=== PATIENT | female | born 1970 | race Caucasian/White ===

== ENCOUNTER → 2025-07-23 13:33 | Day surgery (SDC) | payer OTHER, SELFPAY ==
[2025-07-23] VITALS (9 sets, daily range): BP systolic 92–131; BP diastolic 61–74
--- NOTE | 2025-07-23 09:06 | ED.GENMED ---
History of Present Illness
<Andry Bailey PA-C - Last Filed: 07/23/25 13:39>
General
Chief Complaint: Abdominal Pain
Source: patient
Exam Limitations: none
Time Seen by Provider: 07/23/25 09:00
History of Present Illness
History of Present Illness:
55-year-old otherwise healthy female presents complaining of lower abdominal pain for the past 2 days. She was vomiting at the onset of her symptoms that has since resolved. The pain persist. Pain does not radiate to the back. No associated
urinary symptoms. No fevers. She was traveling to [place] and thought maybe she had food poisoning symptoms are not improving. She had a normal bowel movement earlier today without any diarrhea or blood. No other complaints
Phy Exam
<Andry Bailey PA-C - Last Filed: 07/23/25 13:39>
Physical Exam
Physical Exam:
General: Well-appearing female no acute respiratory distress
HEENT: Normal cephalic atraumatic
Heart: Regular rate and rhythm
Lungs: Clear no wheeze
Abdomen is soft but tender to the lower quadrants bilaterally perhaps right greater than the left. Nondistended
Extremities: No cyanosis
Course
<Andry Bailey PA-C - Last Filed: 07/23/25 13:39>
Orders/Labs/Results
Orders:
Orders
07/23/25 09:06
CT Abd/pelvis W Iv Cont Urgent
Comment:
Reason For Exam: lower abdominal pain
0.9% Sodium Chloride 1000 ml [Nss] 1,000 ml IV BOLUS
07/23/25 09:21
Complete Blood Count/With Diff Urgent
Comprehensive Metabolic Panel Urgent
Lipase Urgent
07/23/25 Lunch
NPO
Allow oral meds: Yes
Allow clear liquids: No
07/23/25 11:56
Piperacillin/Tazo 3.375 Gram [Zosyn] 3.375 gram in 50 ml IV NOW
07/23/25 13:09
Ketorolac [Toradol] 15 mg IV NOW STA
07/23/25 13:23
Sequential Compression Device [Pneumatic Compression Sleeves] As Directed
Type: Knee high
DX Deep Vein Thrombosis Video Routine
07/23/25 13:24
Admit/Transfer Patient As Directed
Co-Sign Provider:
Level of Care: Post Proc/Surg Recovery
Assign to:: Medical/Surgical
Physician / Group: June
Diagnosis: Appendicitis
Reason for Overnight Stay: Standard of Care
Code Status As Directed
Resuscitation Status: Full Code
Abnormal Lab Results
07/23/25
09:21
WBC 13.6 H 10^3/uL
(4.8-10.8)
Abs Immat Gran (auto) 0.1 H 10^3/uL
(0-0.05)
Absolute Neuts (auto) 11.8 H 10^3/uL
(1.4-6.5)
Absolute Lymphs (auto) 1.1 L 10^3/uL
(1.2-3.4)
Neutrophils % 86.8 H %
(42.2-75.2)
Lymphocytes % 7.8 L %
(20.5-51.1)
Glucose 106 H mg/dl
(70-99)
07/23/25 09:21
07/23/25 09:21
Vital Signs
Initial and Last Documented VS:
Initial Vital Signs
Temp Pulse Resp BP Pulse Ox
99.1 F 107 18 101/71 96
07/23/25 08:09 07/23/25 08:09 07/23/25 08:09 07/23/25 08:09 07/23/25 08:09
Last Documented Vital Signs
Temp Pulse Resp BP Pulse Ox
99.1 F 97 17 101/71 96
07/23/25 08:09 07/23/25 09:00 07/23/25 09:00 07/23/25 08:09 07/23/25 09:09
<Jody Mcdonald MD - Last Filed: 07/23/25 13:32>
Orders/Labs/Results
Orders:
Orders
07/23/25 09:06
CT Abd/pelvis W Iv Cont Urgent
Comment:
Reason For Exam: lower abdominal pain
0.9% Sodium Chloride 1000 ml [Nss] 1,000 ml IV BOLUS
07/23/25 09:21
Complete Blood Count/With Diff Urgent
Comprehensive Metabolic Panel Urgent
Lipase Urgent
07/23/25 Lunch
NPO
Allow oral meds: Yes
Allow clear liquids: No
07/23/25 11:56
Piperacillin/Tazo 3.375 Gram [Zosyn] 3.375 gram in 50 ml IV NOW
07/23/25 13:09
Ketorolac [Toradol] 15 mg IV NOW STA
07/23/25 13:23
Sequential Compression Device [Pneumatic Compression Sleeves] As Directed
Type: Knee high
DX Deep Vein Thrombosis Video Routine
07/23/25 13:24
Admit/Transfer Patient As Directed
Co-Sign Provider:
Level of Care: Post Proc/Surg Recovery
Assign to:: Medical/Surgical
Physician / Group: June
Diagnosis: Appendicitis
Reason for Overnight Stay: Standard of Care
Code Status As Directed
Resuscitation Status: Full Code
Abnormal Lab Results
07/23/25
09:21
WBC 13.6 H 10^3/uL
(4.8-10.8)
Abs Immat Gran (auto) 0.1 H 10^3/uL
(0-0.05)
Absolute Neuts (auto) 11.8 H 10^3/uL
(1.4-6.5)
Absolute Lymphs (auto) 1.1 L 10^3/uL
(1.2-3.4)
Neutrophils % 86.8 H %
(42.2-75.2)
Lymphocytes % 7.8 L %
(20.5-51.1)
Glucose 106 H mg/dl
(70-99)
07/23/25 09:21
07/23/25 09:21
Vital Signs
Initial and Last Documented VS:
Initial Vital Signs
Temp Pulse Resp BP Pulse Ox
99.1 F 107 18 101/71 96
07/23/25 08:09 07/23/25 08:09 07/23/25 08:09 07/23/25 08:09 07/23/25 08:09
Last Documented Vital Signs
Temp Pulse Resp BP Pulse Ox
99.1 F 97 17 101/71 96
07/23/25 08:09 07/23/25 09:00 07/23/25 09:00 07/23/25 08:09 07/23/25 09:09
<Andry Bailey PA-C - Last Filed: 07/23/25 13:39>
MDM/Problems Addressed
Differential Diagnosis Includes:
Abdominal pain. Consider diverticulitis versus appendicitis versus colitis versus viral illness. She was vomiting and has not had anything to eat or drink since then. Consider electrolyte abnormality or dehydration. Check labs. Fluids ordered.
CT pending
<Andry Bailey PA-C - Last Filed: 07/23/25 13:39>
*Pulse Oximetry
SaO2: 96
Oxygen Mode of Delivery: Room air
Patient hypoxic: no
*Critical Care Note
Total Time (30-74mins, 75-104mins- exclusive of procedures): Not Applicable
<Andry Bailey PA-C - Last Filed: 07/23/25 13:39>
Update Note
Update Note:
White count 13.7. CT demonstrates acute appendicitis with an appendix measuring 14 mm in diameter with significant stranding surrounding this. No sign of rupture or abscess. Zosyn ordered fluids are going in. Notified surgery
ED Attending Note
<Andry Bailey PA-C - Last Filed: 07/23/25 13:39>
-
Portions of this chart may have been created with voice recognition software.� Occasional wrong word or��sound alike� substitutions may have occurred due to the inherent limitations of voice recognition software.
<Jody Mcdonald MD - Last Filed: 07/23/25 13:32>
ED Attending Note
Patient seen and examined by attending physician: Yes
I performed the substantive portion of visit, reviewed & personally made and approve the management plan that is documented in note by myself or YOSI.: Yes
ED Attending Note:
The patient appears nontoxic and rather well. Abdomen is mildly distended but soft. Right lower quadrant tenderness on exam. Heart sounds regular, lungs are clear.
Discharge Plan
Departure
Patient Disposition: Admit
Date of Disposition: 07/23/25
Time of Disposition: 11:59
Presentation/result/management discussed w/ accepting /DO: June
Discharge Problem:
Acute appendicitis
Interventions
Interventions:
*Risk Screen - Suicide Last Done: 07/23/25 09:08
*General Assessment Last Done: 07/23/25 09:08
*Neglect/Abuse Screening Last Done: 07/23/25 09:08
*ED- Fall Risk Assessment Last Done: 07/23/25 09:08
*ED COVID-19 Vaccine History Last Done: 07/23/25 09:08
ZD-Qseufe-Puxbzaqciu Assessment Last Done: 07/23/25 09:08
[2025-07-23] MEDS: NSS 1000 IV ×2 (09:21→19:45)
[2025-07-23 09:28] LABS: Hematocrit 38.5 % (37.0-47.0); Hemoglobin 12.9 g/dL (12.0-16.0); Mean Corp Hgb Conc. 33.5 g/dL (33.0-37.0); Mean Corpuscular Volume 87.3 fL (81.0-99.0); Nucleated Red Blood Cells % 0 %; Platelet Count 247 10^3/uL (130-400); Red Cell Dist. Width 12.9 % (11.5-14.5)
[2025-07-23 09:55] LABS: ALT (SGPT) 17 U/L (0-35); AST (SGOT) 19 U/L (14-36); Albumin 4.2 g/dl (3.5-5.0); Alkaline Phosphatase 75 U/L (38-126); Blood Urea Nitrogen 17 mg/dl (7-17); Calcium 9.4 mg/dl (8.4-10.2); Carbon Dioxide 27 mmol/L (22-30); Chloride 105 mmol/L (98-107); Glucose 106 mg/dl (70-99); Lipase 56 U/L (23-300); Potassium 3.7 mmol/L (3.5-5.1); Sodium 137 mmol/L (135-145); Total Protein 6.7 g/dl (6.3-8.2); eGFR > 60.00
[2025-07-23] MEDS: ZOSYN 50 IV (12:18)
--- NOTE | 2025-07-23 13:14 | HPS.HSE ---
Family Physician
-
Family Physician: NOT KNOW UNKNOWN - PT DOES
Chief Complaint
-
RLQ pain
History of Present Illness
55 yo female with a h/o rhinoplasty who presents through the ED with abdominal pain which began Thursday while she was travelling home from [place] with associated nausea. Her pain localized to the RLQ yesterday and worsened. She notes that she induced
vomiting with some improvement in nausea but it returned. She reports anorexia and bloating. She denies bowel or bladder changes. She denies fevers or chills.
Medical History
Past Medical History
Past Medical History: Reports None
Past Surgical History: Reports Other (Rhinoplasty 1986)
Additional Past Surgical History:
Colonoscopy 2020
Social History
Tobacco: Non-smoker
Alcohol: None
Family History
Family History: Not pertinent
Allergies / Home Medications
Allergies reflects when Allergies were last updated in [facility].
Home Medications with original date entered in [facility]
Allergy/Medication List:
Patient Allergies
Allergy/AdvReac Type Severity Reaction Status Date / Time
Penicillins Allergy Mild Rash Verified 07/23/25 08:12
If medication reconciliation has not been performed, why?: Other (Takes no regular home meds)
Review of Systems
-
History Source: Patient
A 12 point ROS was completed and negative except as noted: Yes
Physical Exam
Vital Signs
Vital Signs
Temp Pulse Resp BP Pulse Ox
99.1 F 97 17 101/71 96
07/23/25 08:09 07/23/25 09:00 07/23/25 09:00 07/23/25 08:09 07/23/25 09:09
Physical Exam
General: Well Developed and Well Nourished
HEENT: NormoCephalic and Moist mucous membranes
Respiratory: Clear
GI: Soft and Non Distended
Laboratory Results
-
07/23/25 09:21
07/23/25 09:21
Laboratory Results
Total Bilirubin 0.7 mg/dl (0.2-1.3) 07/23/25 09:21
AST 19 U/L (14-36) 07/23/25 09:21
ALT 17 U/L (0-35) 07/23/25 09:21
Alkaline Phosphatase 75 U/L (38-126) 07/23/25 09:21
Lipase 56 U/L (23-300) 07/23/25 09:21
Data Reviewed
-
CT Scan: Image Personally Visualized and interpreted, Report Reviewed by me, Discussed with Physician and Discussed with Patient
Lab Data: Labs Reviewed by me, Discussed with Physician, Discussed with Patient and Discussed with Family
Old Records: Reviewed
Impression/Plan
-
IMPRESSION:
55 yo female presenting with >48hours of abdominal pain with associated nausea and anorexia. RLQ pain/tenderness on exam. Leukocytosis present to 13.6. Afebrile, VSS. CT imaging consistent with acute appendicitis without evidence of perforation or
abscess.
PLAN:
NPO for OR
Analgesics/antiemetics
Zosyn given in the ED
Will plan OR today for laparoscopic appendectomy
SCDs for VTE ppx
[2025-07-23] MEDS: TORADOL 15 MG IV (13:27)
--- NOTE | 2025-07-23 15:21 | CM ---
CM met with pt, spouse and leliar/Milagro bedside
Pt and spouse reside in a [facility] with 3 LEA, full flight to 2nd floor
Pt is independent with her ADLs
Denies use of DMEs or financial insecurities
PCP- Samantha Sandra
Rx- [facility]
Plan for OR today for lap appendectomy
Discharge Disposition- anticipate home no needs
[2025-07-23] MEDS: TYLENOL 650 MG PO (20:02)
[2025-07-23] MEDS: TORADOL 10 MG IV (23:18)
[2025-07-24 04:00] VITALS: BP 99/60
[2025-07-24] MEDS: NSS 1000 IV (04:56)
[2025-07-24 07:50] VITALS: BP 95/65
--- NOTE | 2025-07-24 08:50 | W.PN.GS2 ---
Today's Communication / Plan
-
DC home
Assessment / Plan
-
55F POD1 s/p lap appy for acute appendicitis
Doing well post-op, meets criteria for DC
Subjective Data
-
Date of Service: July 24, 2025
AFVSS, no complaints, ambulating, voiding, kenneth PO, pain controlled
Objective Data
-
Intake and Output
07/23/25 07/24/25 07/25/25
06:59 06:59 06:59
Intake Total 370 / 370
Output Total 400 / 400
Balance -30 / -30
Intake:
Oral fluids 270 / 270
IV fluids (Total) 100 / 100
Normosol 100 / 100
Output:
Urine, Voided 400 / 400
Other:
Number of approximated MODERATE 2
amounts of urine
Vital Signs
Temp Pulse Resp BP Pulse Ox
98.1 F 79 16 95/65 98
07/24/25 07:50 07/24/25 07:50 07/24/25 07:50 07/24/25 07:50 07/24/25 07:50
Lab Results
07/23/25 09:21
07/23/25 09:21
Calcium 9.4 mg/dl (8.4-10.2) 07/23/25 09:21
Total Bilirubin 0.7 mg/dl (0.2-1.3) 07/23/25 09:21
AST 19 U/L (14-36) 07/23/25 09:21
ALT 17 U/L (0-35) 07/23/25 09:21
Alkaline Phosphatase 75 U/L (38-126) 07/23/25 09:21
Total Protein 6.7 g/dl (6.3-8.2) 07/23/25 09:21
Albumin 4.2 g/dl (3.5-5.0) 07/23/25 09:21
Physical Exam
-
Gen: NAD
Abd: soft, approp ttp, incisions cdi with glue
Patient has a martinez catheter: No
Patient has a central line: No
--- NOTE | 2025-07-24 08:51 | W.DS.TRANS ---
DC Summary - Systems Mgr
-
Discharge Instructions:
Discharge Diagnosis/Procedures Acute appendicitis status post laparoscopic
appendectomy
Diet As tolerated,Regular
Activity No strenuous activity
Additional Activity Do not lift over 20lbs for the next 2-3 weeks
Driving Restrictions No driving for 24 hours
Bathing Restrictions OK to Shower
Wound Care Allow the glue over your incisions to flake off
on its own over the next 2-3 weeks. Avoid
scrubbing or picking it off.
Call your surgeon if you have fever >100.5,
nausea with vomiting or worsening pain.
Instructions:
Stand-Alone Forms:
Changes to Home Medications: No
Discharge Medications:
DC Medications w/original date entered in [facility]
No Meds [No Current Medications] 07/23/25
Home Medication Changes
Pending Results: No
--- NOTE | 2025-07-24 09:23 | CM ---
Patient seen at bedside. Patient states that she is anticipating discharge home today. Patient states that she has a ride home and no concerns at this time. CM will continue to follow for discharge planning needs.
Plan; home with no needs anticipated.
[2025-07-24 10:10] VITALS: BP 111/74
[2025-07-24] MEDS: TYLENOL 650 MG PO (10:26)
--- NOTE | 2025-07-24 11:01 | OR.RPT ---
Addendum entered and electronically signed by Isidoro Watkins MD 07/25/25 12:18:
Correction: DOS 07-23-25
Original Note:
Operative Report
Operative Report
Delayed entry from 07/23/25
Primary Surgeon: June
Pre-op Diagnosis: Acute appendicitis
Post-op Diagnosis: Same
Procedure Performed:Laparoscopic appendectomy
Anesthesia Type: GETA
Specimen / Cultures: Appendix
Estimated Blood Loss: 5cc
Complications: None immediate
Operative Findings: Elogated inflamed appendix without perforation, some early gangrenous changes at mid-body, turbid fluid suctioned from pelvis
DOS: 07/24/25
Indications: This 55F developed right lower quadrant abdominal pain and on workup was found to have acute appendicitis. Laparoscopic appendectomy was elected.
Description of procedure: The patient was placed on the operating table in the supine position. General anesthesia was induced. A time-out was completed verifying correct patient, procedure, site, positioning, and special equipment prior to
beginning this procedure. An orogastric tube was placed. The abdomen was prepped and draped in the usual sterile fashion. A stab incision was made in left upper quadrant and the Veress needle was inserted. Proper position was confirmed by aspiration
and saline meniscus test. The abdomen was insufflated with carbon dioxide to a pressure of 12 mmHg. The patient tolerated insufflation well.
A 5mm optical trocar was then inserted at the left lower quadrant. The laparoscope was inserted and the abdomen inspected. No injuries from initial trocar placement or Veress needle insertion were noted. Additional trocars were then inserted in the
following locations: a 12-mm trocar at the umbilicus and a 5-mm trocar midline in the suprapubic space. The abdomen was inspected and no abnormalities were found. The table was placed in the Trendelenburg position with the right side up. The
appendix was moderately inflamed distally with some early gangrenous changes at the mid-body, and the base appeared healthy. The tip of the appendix was gently grasped with an atraumatic grasper and retracted toward the patient�s feet and abdominal
wall. This maneuver exposed the appendiceal blood supply which was controlled with the Ligasure device. Following this, a laparoscopic linear cutting stapler with a 45mm small load was deployed and used to transect the appendix at its base. The
appendix was placed in an endoscopic retrieval bag, removed through the umbilical port, and passed off the table as a specimen.
We then turned our attention to the staple line, which was noted to be hemostatic. Scant turbid fluid was suctioned from the pelvis. The umbilical trocar site was closed at the fascial level laparoscopically with 2-0 PDS under direct vision.
Secondary trocars were removed under direct vision and noted to be hemostatic. The laparoscope was withdrawn and the abdomen was allowed to collapse. The skin was closed with subcuticular sutures of 4-0 monocryl and topical skin adhesive. The
orogastric tube was removed.
The patient tolerated the procedure well and was taken to the postanesthesia care unit in stable condition.
== END ==
LOC: EMR 08:02 → SDS 13:33
PROVIDERS: Physician Assistant; ATTENDING PHYSICIAN Surgery; EMERGENCY PHYSICIAN Emergency Medicine
DX: K35.891 Other acute appendicitis without perforation, with gangrene (principal)
CPT/HCPCS: 44970; 74177; 80053; 83690; 85025; 88304; 96361; 96374; 99285; Q9967